=== PATIENT | female | born 1995 | race African-American/Black ===

== ENCOUNTER 2021-04-23 19:06 | Inpatient (IN) ==
[2021-04-23] MEDS ORDERED: OBEPIDURAL 250 ML EPIDURAL ONE (21:41)
[2021-04-23] MEDS ORDERED: Lactated Ringers 1000 ml BAG 1,000 ML IV ONE ×2 (21:46→22:54)
[2021-04-23 22:07] LABS: Hematocrit 38 % (35-47); Hemoglobin 12.3 g/dL (12.0-16.0); Mean Corpuscular HGB Conc 33 g/dL (31-36); Mean Corpuscular Hemoglobin 25 pg (27-31); Mean Corpuscular Volume 78 fL (80-97); Mean Platelet Volume 11.5 fL (7.4-10.4); Platelet Count 143 10^3/uL (150-450); Red Blood Count 4.84 10^6 /uL (3.70-4.87); Red Cell Distribution Width 16 % (10-15); White Blood Count 10.8 10^3/uL (3.5-10.8)
[2021-04-23 22:27] LABS: Urine Benzodiazepine Screen None Detected (None Detect); Urine Cannabinoids Screen None Detected (None Detect); Urine Opiates Screen None Detected (None Detect)
[2021-04-23] MEDS ORDERED: Phenylephrine 40 mcg/mL 10mL (400mcg) SYRINGE IV PUSH PRN (22:54)
[2021-04-23] MEDS ORDERED: Sodium Citrate/Citric Acid LIQ 15 ML UDC PO PRN (22:54)
[2021-04-23] MEDS ORDERED: Lactated Ringers 1000 ml BAG 500 ML IV PRN (22:54)
[2021-04-23] MEDS ORDERED: EPHEDrine (Pressors) 50 MG/ML VIAL IV PUSH PRN (22:54)
[2021-04-23] MEDS ORDERED: Ropivacaine 300 MG in NS 0.9% 250 ml 240 ML EPIDURAL SCH (23:00)
[2021-04-23] MEDS ORDERED: Lactated Ringers 1000 ml BAG 1,000 ML IV SCH (23:00)
[2021-04-23 23:02] LABS: ABS Lymphocytes 1.9 10^3/ul (1.0-4.8); ABS Monocytes 0.9 10^3/ul (0-0.8); ABS Neutrophils 7.9 10^3/ul (1.5-7.7); Eosinophil % 0.2 %; Lymphocyte % 17.5 %; Nucleated Red Blood Cells % 0.1
[2021-04-23 23:03] LABS: Anisocytosis 1+
[2021-04-23] MEDS ORDERED: diPHENhydraMINE IV 50 MG/ML 1 ml VIAL (BENADRYL) IV PRN (23:03)
[2021-04-23 23:04] LABS: Microcytosis 1+
[2021-04-23] MEDS ORDERED: fentaNYL 100 mcg/2 ml 50 MCG/ML VIAL ONE (23:22)
[2021-04-23 23:47] LABS: Urine Appearance Clear; Urine Bilirubin Negative (Negative); Urine Blood Negative (Negative); Urine Color Straw; Urine Glucose 1+(50 mg/dL) (Negative); Urine Ketones Trace (Negative); Urine Nitrite Negative (Negative); Urine Protein Negative (Negative); Urine Specific Gravity 1.006 (1.002-1.030); Urine Urobilinogen Negative (Negative)
[2021-04-24] MEDS ORDERED: Oxytocin in LR 20 UNITS/1,000 ML BAG IVPB SCH (01:30)
[2021-04-24] MEDS ORDERED: Bupivacaine 0.5% SDV PF 30ML VIAL ONE (12:40)
[2021-04-24] MEDS ORDERED: fentaNYL 100 mcg/2 ml 50 MCG/ML VIAL ONE ×3 (12:40→17:10)
[2021-04-24] MEDS ORDERED: Sodium Citrate/Citric Acid LIQ 15 ML UDC ONE (16:16)
[2021-04-24] MEDS ORDERED: ceFOXitin 2 GM IVPREMIX 0 GM/0 ML BAG ONE (16:17)
[2021-04-24] MEDS ORDERED: Clindamycin 900 MG/D5W BAG 900 MG/50 ML BAG IVPB ONE (16:22)
[2021-04-24] MEDS ORDERED: Morphine PF AMP (0.5MG/ML) 5 MG/10 ML AMP ONE (16:28)
[2021-04-24] MEDS ORDERED: diPHENhydraMINE IV 50 MG/ML 1 ml VIAL (BENADRYL) IV PRN (16:30)
[2021-04-24] MEDS ORDERED: Naloxone 0.4 mg VIAL 0.4 mg/ml 1 ml VIAL IV PRN ×2 (16:30→17:44)
[2021-04-24] MEDS ORDERED: Ondansetron 4 mg VIAL 2 MG/ML 2 ml VIAL IV PRN (16:30)
[2021-04-24] MEDS ORDERED: oxyCODONE/Acetamin 5/325 mg TAB PO PRN (16:30)
[2021-04-24] MEDS ORDERED: Lidocaine 2% PF 10 ML AMP ONE (16:31)
[2021-04-24] MEDS ORDERED: Ondansetron 4 mg VIAL 2 MG/ML 2 ml VIAL ONE (16:37)
[2021-04-24] MEDS ORDERED: Oxytocin 10 UNITS/ML 1 ML VIAL ONE (16:37)
[2021-04-24] MEDS ORDERED: Gentamicin ADULT 360 MG in NS 0.9% 100 ml BAG 100 ML IVPB ONE (17:00)
[2021-04-24] MEDS ORDERED: Propofol 10 MG/ML 20 ML BTL ONE (17:10)
[2021-04-24] MEDS ORDERED: Ketamine HCL 50 mg/ml 10 ml VIAL (500 MG) ONE (17:14)
[2021-04-24] MEDS ORDERED: Acetaminophen IV 1 GM/100ML 100 ML IV ONE (17:36)
[2021-04-24] MEDS ORDERED: DiMENhydriNATE IV 50 mg/ml 1 ml VIAL IV PUSH PRN (17:44)
[2021-04-24] MEDS ORDERED: HYDROmorphone 1 MG/1 ML SYRINGE ONE ×2 (17:50→18:19)
[2021-04-24] MEDS ORDERED: Phenylephrine 40 mcg/mL 10mL (400mcg) SYRINGE ONE (18:03)
[2021-04-24] MEDS ORDERED: Dibucaine 1% OINT 28.35 GM TUBE PR PRN (18:25)
[2021-04-24] MEDS ORDERED: Glycerin ADULT 2.4 gm SUPP PR PRN (18:25)
[2021-04-24] MEDS ORDERED: Witch Hazel PAD JAR TOPICAL PRN (18:25)
[2021-04-24] MEDS: HYDROmorphone 1 MG/1 ML SYRINGE IV PRN ×2 (18:28→18:38)
[2021-04-24] MEDS ORDERED: Lactated Ringers 1000 ml BAG 1,000 ML IV SCH (19:00)
[2021-04-24] MEDS: Oxytocin in LR 20 UNITS/1,000 ML BAG IVPB SCH (20:00)
[2021-04-25] MEDS: Oxytocin in LR 20 UNITS/1,000 ML BAG IVPB SCH (03:59)
[2021-04-25 06:32] LABS: ABS Lymphocytes 0.9 10^3/ul (1.0-4.8); ABS Monocytes 0.6 10^3/ul (0-0.8); ABS Neutrophils 10.8 10^3/ul (1.5-7.7); Eosinophil % 0.1 %; Hematocrit 29 % (35-47); Hemoglobin 9.5 g/dL (12.0-16.0); Mean Corpuscular HGB Conc 33 g/dL (31-36); Mean Corpuscular Hemoglobin 26 pg (27-31); Mean Corpuscular Volume 78 fL (80-97); Mean Platelet Volume 9.9 fL (7.4-10.4); Platelet Count 105 10^3/uL (150-450); Red Blood Count 3.67 10^6 /uL (3.70-4.87); Red Cell Distribution Width 16 % (10-15); White Blood Count 12.3 10^3/uL (3.5-10.8)
[2021-04-26 20:08] VITALS: BP 105/64
== END 2021-04-27 16:10 | disposition home or self-care (01) | DRG 788 ==
LOC: MCHOBOUT 19:06 → MCHOB 21:02
PROVIDERS: ADMIT Midwife; ATTEND Obstetrics & Gynecology